=== PATIENT | female | born 2000 | race Caucasian/White ===

== ENCOUNTER 2018-10-05 20:21 | Inpatient (IN) ==
[2018-10-05 20:44] LABS: Basophils % 0.6 % (0.1-2.0); Eosinophils % 0.5 % (0.1-12.0); Hemoglobin 12.8 g/dL (12.2-16.2); Lymphocytes # 1.5 K/mm3 (0.7-4.5); Lymphocytes % 19.8 % (10-50); Mean Corpuscular HGB Conc 32.9 g/dL (31.8-35.4); Mean Corpuscular Volume 86.2 fl (81-99); Mean Platelet Volume 6.9 fl (7.4-10.4); Monocytes # 0.5 K/mm3 (0.1-1.0); Monocytes % 6.3 % (1.7-9.3); Neutrophils # 5.4 K/mm3 (1.8-7.8); Neutrophils % 72.8 % (37.0-80.0); Platelet Count 265 K/mm3 (142-424); Red Blood Count 4.52 M/mm3 (4.20-5.40); Red Cell Distribution Width 13.3 % (11.5-17.5); White Blood Count 7.4 K/mm3 (4.5-13.0)
[2018-10-05 21:04] LABS: Albumin Level 3.6 gm/dL (3.4-5.0); Albumin/Globulin Ratio 1.2 (1.1-1.8); Anion Gap 13.6 mEq/L (5-15); Bilirubin,Total 0.4 mg/dL (0.2-1.0); Calcium 8.6 mg/dL (8.5-10.1); Globulin 2.9 gm/dl (1.3-3.2); Total Protein,Serum 6.5 gm/dL (6.4-8.2)
--- NOTE | 2018-10-05 21:33 | Emergency Department Note ---
ED Disposition Clinical Impression: Fracture of lower leg, closed Qualifiers: Encounter type: initial encounter Laterality: left Qualified Code(s): S82.92XA - Unspecified fracture of left lower leg, initial encounter for closed fracture Disposition: Admitted as Observation Condition on Discharge: Good - Critical Care Critical Care Time: No Attestation: On 10/05/18, the high probability of a clinically significant, sudden or life threatening deterioration of the following system(s) required my full and direct attention, intervention and personal management. The time I documented below is in addition to time spent performing reported procedures but includes the following listed in this critical care notation. Medical Decision Making - Medical Records Medical records reviewed: Yes: I reviewed the patient's medical records. - Parish Inquiry Pt receiving controlled substance: No Vital Signs: 10/05/18 20:20 Temperature 99.3 F Temperature Source Oral Pulse Rate [Left Radial] 73 Respiratory Rate 18 Blood Pressure [Right Arm] 132/71 Blood Pressure Mean [Right Arm] 91 Blood Pressure Source [Right Arm] Manual Cuff/ Doppler Blood Pressure Position [Right Arm] Supine 02 Sat by Pulse Oximetry 97 Oxygen Delivery Method Room Air - Lab Data Lab results reviewed: Yes: I reviewed the patient's lab results. Lab Results 10/05/18 20:03: Serum HCG, Qual Negative 10/05/18 20:30: WBC 7.4, RBC 4.52, Hgb 12.8, Hct 39.0, MCV 86.2, MCH 28.3, MCHC 32.9, RDW 13.3, Plt Count 265, MPV 6.9 L, Neut % (Auto) 72.8, Lymph % (Auto) 19.8, [place] % (Auto) 6.3, Eos % (Auto) 0.5, Baso % (Auto) 0.6, Neut # (Auto) 5.4, Lymph # (Auto) 1.5, [place] # (Auto) 0.5, Eos # (Auto) 0.0, Baso # (Auto) 0.0 10/05/18 20:30: Sodium 142, Potassium 3.6, Chloride 106, Carbon Dioxide 26, Anion Gap 13.6, BUN 17, Creatinine 0.65, Estimated Creat Clear 99, Estimated GFR 116, Est GFR ( Amer) 141, Glucose 114 H, Calcium 8.6, Total Bilirubin 0.4, AST 16, ALT 20, Alkaline Phosphatase 81, Total Protein 6.5, Albumin 3.6, Globulin 2.9, Albumin/Globulin Ratio 1.2 Result diagrams: 10/05/18 20:30 10/05/18 20:30 Orders (Tests/Meds): ED MEDICATIONS Discontinued Medications Generic Name Dose Route Start Last Admin Trade Name Chonq PRN Reason Stop Dose Admin Fentanyl Citrate 100 mcg 10/05/18 20:34 10/05/18 20:38 Fentanyl 100mcg/2ml Vial IV 10/05/18 20:35 100 mcg ONCE ONE Administration Fentanyl Citrate 100 mcg 10/05/18 20:52 10/05/18 21:02 Fentanyl 100mcg/2ml Vial IV 10/05/18 20:53 100 mcg ONCE ONE Administration ORDERS Category Date Time Status CT cervical spine wo con Stat Cat Scan 10/05/18 20:[address] head/brain wo con Stat Cat Scan 10/05/18 20:24 Taken XR chest AP Stat Exams 10/05/18 20:24 Taken XR pelvis 1-2V Stat Exams 10/05/18 20:24 Taken XR tibia fibula LT 2V Stat Exams 10/05/18 20:24 Taken - Radiology Data #1 Image(s): Chest, Pelvis, Tib/Fib Image Reviewed: Yes I reviewed the patient's radiology image Preliminary Findings: Abnormal (lower leg fx ) - CT Data CT Scan: Head, C-Spine Time Received: 21:[address] Reviewed: Yes: I have viewed the radiologist's interpretation Preliminary Findings: No Fracture Seen - Physician Consults Physician Consulted: [email or web address] Reason -: Admission Trauma Alert The Trauma Alert Section documentation for [id number] Kerwin Banuelos was populated with data that defaulted in from the hr business partner in the Trauma Alert Triage Assessment on f_Reg Service Date] to provide within this report, the status of the patient on arrival to the ED during the Trauma Alert. - Arrival Mode of Arrival: EMS Description of Symptoms (Recalled from ER Triage Doc. by RN): pt fell of a horse about 1830 and got her left leg caught in the stirrup. pt c/o of left leg pain. left tib/fib deformity noted. -loc, - c/o neck or back pain at this time. - Pre-Hospital Care Pre-Hospital Care Given: Yes - Pre-Hospital Care History Oxygen in Use: No - Height/Weight/BMI Height: 5 ft Weight: 100 lb Weight Measurement Method: Stated by Patient Body Mass Index: 19.5 - Immunization Status Hx Immunizations Up to Date: Yes Trauma HPI - General Chief Complaint: Trauma Stated Complaint: trauma Time Seen by Provider: 10/05/18 20:30 Mode of Arrival: EMS Source of Information: Patient, Relative, EMS, Medical Record Limitations: Physical Limitations Description of Symptoms (Recalled from ER Triage Doc. by RN): pt fell of a horse about 1830 and got her left leg caught in the stirrup. pt c/o of left leg pain. left tib/fib deformity noted. -loc, - c/o neck or back pain at this time. - History of Present Illness HPI narrative: pt fell off horse with injury to lt lower leg - no loc and denied abd pain or chest pain MD complaint: fall Onset (ago): hour(s) Loss of Consciousness: no Location - Extremities: Left: lower leg Severity: moderate Severity scale (1-10): 8 Context: fall Associated symptoms: denies other symptoms Treatments prior to arrival: cold therapy, splint(s) - Related Data Allergies Allergy/AdvReac Type Severity Reaction Status Date / Time No Known Allergies Allergy Verified 10/05/18 20:23 [facility] History - Hepatitis A Screen Drug use history?: No High risk sexual behaviors?: No History of sexually transmitted infection?: No Currently employed?: No Childcare worker?: No Do you have indoor plumbing?: Yes Do you have electricity?: Yes Attestation statement:: This patient has been screened for Hepatitis A risk factors. I have reviewed the patient's past medical history: Yes ROS Obtained: Yes All systems reviewed & no additional complaints - Constitutional Constitutional: Denies fever(s) - Eyes Eyes: Denies change in vision - ENT Ears, Nose, Mouth, and Throat: Denies sore throat - Cardiovascular Cardiovascular: Denies chest pain - Respiratory Respiratory: No cough - Gastrointestinal Gastrointestingal: Denies: vomiting - Genitourinary Female Genitourinary: Denies hematuria - Musculoskeletal Musculoskeletal: Reports as per HPI, Reports deformity, Denies joint swelling - Integumentary/Breasts Skin/Breast: Denies rash - Neurologic Neurologic: Denies seizure-like activity Physical Exam - General General appearance: alert - Head Head exam: normocephalic - Eye Eye exam: Present: PERRL, EOMI - ENT ENT exam: Present: mucous membranes dry, other (no evid of tongue biting ) - Neck Neck exam: Present: trachea midline - Respiratory Respiratory exam: Present: normal lung sounds bilaterally. Absent: respiratory distress - Cardiovascular Cardiovascular exam: Present: regular rate. Absent: systolic murmur - Abdominal Exam Abdominal exam: Present: soft - Expanded Lower Extremity Exam Left Lower leg exam: Present: tenderness, swelling, deformity, other (neurovascular ok and no clinical evid of compartment syyndrome ) - Neurological Exam Neurological exam: Present: alert, oriented X3, CN II-XII intact, other (gcs=15) - Psychiatric Psychiatric exam: Present: normal affect - Skin Skin exam: Absent: rash Procedures - Orthopedic Splinting/Casting Injury #1 Side: left Lower Extremity Injury Location: lower leg Lower Extremity Immobilizer: posterior splint Post Cast/Splinting Neuro Status: intact Post Cast/Splinting Vasc Status: intact
--- NOTE | 2018-10-06 09:57 | History & Physical Report ---
*Admission Date: 10/05/18 *Chief complaint: Injury left leg *History of present illness: Patient is a 18-year-old female admitted to hospital overnight to the emergency department. She is giving a history of injury to her left leg after she fell off a horse she was riding at about 1830 yesterday evening. She thinks her left leg was caught in the stirrup and she may have broken the leg when she hit the ground. Following the injury she was brought to the [facility] ER where evaluation including x-rays showed a closed, displaced fracture shaft of left tibia and fibula. She was placed in a posterior splint and was admitted for further management. She says she did fairly well overnight and her pain is well controlled with medication. She rates her pain 3-4 out of 10 at baseline. The pain is worse with any attempted movements of the left lower extremity. There is no history of any distal tingling or numbness. She is not complaining of pain anywhere else. No history of any loss of consciousness, head injury, neck or back pain. She is otherwise fit and well and has no significant medical problems. Patient says she is from [place] and is here in [place] with her boss. She is a non-smoker. [place] History I have reviewed the patient's past medical history: Yes Medical History: Denies:: Cancer, Diabetes Mellitus Type 1, Diabetes Mellitus Type 2, MRSA *Have you ever received a pneumonia vaccine?: No *Have you received a flu vaccine this season?: No Other Surgeries: Yes: No Previous Surgery Amputation: No Fractures: No - *Social History Educational Level: Completed College Smoking Status: Never smoker Alcohol Intake: never *Occupational Status:: student Household Members: friend(s) *Travel in the last 8 weeks: None - Psychiatric History Expresses thoughts of harming self/others: None Suicide Plan Description: No Plan Family Hx:: Heart Attack, Hyperlipidemia, Hypertension Review of Systems - Review of Systems Review of systems:: pertinent systems reviewed and negative unless documented below - Constitutional Reports body ache(s) - Eyes Denies blind spots, Denies blurry vision - ENT Denies abnormal hearing - *Cardiovascular Denies chest pain, Denies shortness of breath - *Respiratory Denies cough, Denies shortness of breath - *Gastrointestinal Denies abdominal pain - *Musculoskeletal Reports abnormal walking, Reports deformity, Reports limited joint movement - *Neurologic Denies abnormal speech, Denies dizziness, Denies numbness, Denies tingling/numbness/burning sensations, Denies seizure-like activity Meds Home Medications Medication Instructions Recorded Confirmed Type No Known Home Medications 10/05/18 10/05/18 History Allergies Allergy/AdvReac Type Severity Reaction Status Date / Time No Known Allergies Allergy Verified 10/05/18 20:23 Exam Vital signs and Labs for Last 24 Hours: Temp Pulse Resp BP Pulse Ox 98.9 F 68 20 112/67 100 10/06/18 08:00 10/06/18 08:00 10/06/18 08:00 10/06/18 08:00 10/06/18 08:00 Laboratory Results - last 24 hr 10/05/18 20:03: Serum HCG, Qual Negative 10/05/18 20:30: WBC 7.4, RBC 4.52, Hgb 12.8, Hct 39.0, MCV 86.2, MCH 28.3, MCHC 32.9, RDW 13.3, Plt Count 265, MPV 6.9 L, Neut % (Auto) 72.8, Lymph % (Auto) 19.8, [place] % (Auto) 6.3, Eos % (Auto) 0.5, Baso % (Auto) 0.6, Neut # (Auto) 5.4, Lymph # (Auto) 1.5, [place] # (Auto) 0.5, Eos # (Auto) 0.0, Baso # (Auto) 0.0 10/05/18 20:30: Sodium 142, Potassium 3.6, Chloride 106, Carbon Dioxide 26, Anion Gap 13.6, BUN 17, Creatinine 0.65, Estimated Creat Clear 99, Estimated GFR 116, Est GFR ( Amer) 141, Glucose 114 H, Calcium 8.6, Total Bilirubin 0.4, AST 16, ALT 20, Alkaline Phosphatase 81, Total Protein 6.5, Albumin 3.6, Globulin 2.9, Albumin/Globulin Ratio 1.2 I & O for Last 24 hours: Intake & Output 10/03/18 10/04/18 10/05/18 10/06/18 11:59 11:59 11:59 11:59 Intake Total 0 / 0 Output Total 1150 / 1150 Balance -1150 / -1150 Weight 117 lb 2 oz - Constitutional no acute distress, average body habitus, cooperative - *Routine HEENT Exam Head: Present: normocephalic, atraumatic Eye: Present: EOMI ENT: Present: mucous membranes moist - *Routine Neck Exam Present: supple, full ROM, trachea midline. Absent: lymphadenopathy - *Routine Respiratory Exam Present: CTA bilaterally. Absent: respiratory distress - *Routine Cardiovascular Exam Present: RRR, Normal S1, Normal S2 - *Routine Abdominal Exam Present: soft, normoactive bowel sounds. Absent: organomegaly - *Routine Extremities Exam Comments: On examination of her left lower extremity, she is in a long-leg posterior splint. On examination out of the splint, the skin is intact. There is ecchymosis, swelling and deformity over the middle and distal third junction of the left leg. She is tender over the left leg, tibia/fibula; nontender over the knee and ankle joints. Thigh and calf compartments are soft and nontender; no stretch pain noted with flexion and extension of the toes; no other signs of compartment syndrome noted. Examination of the knee joint is unremarkable. Dorsalis pedis and posterior tibial pulses are 2+. Sensation is intact to light touch throughout. No motor deficits are noted. Diagnostic imaging: X-rays of her left leg performed at [facility] reviewed along with the radiologist report. FINDINGS: Complete transverse fractures are present involving the junction of the mid- distal third of the tibia and fibula with mild anterior displacement of the fracture fragments. There is mild lateral displacement of the fibular fracture fragment. There is some minimal overlap of the fibular fracture fragment. IMPRESSION: Mildly displaced left tib-fib fracture Dictated By: Cole Alva MD 10/06/18 0548 I have also reviewed her trauma series imaging along with radiologist report; no evidence of any other acute injuries are noted. - Routine Back/Spine/Pelvis Exam Back/Spine: Present: full ROM. Absent: CVA tenderness, paraspinal tenderness, vertebral tenderness Pelvis: Absent: tenderness of the symphysis pubis, pain with lateral compression of the pelvis, sacral tenderness - *Routine Skin Exam Present: intact, warm, normal turgor - *Routine Neurological Exam Present: alert, oriented X3, CN II-XII intact - Routine Psychiatric Exam Present: normal affect, normal thought process, cooperative Assessment and Plan (1) Fracture of shaft of left tibia and fibula Current visit: Yes Status: Acute Qualifiers: Encounter type: initial encounter Fracture type: closed Qualified Code(s): S82.202A - Unspecified fracture of shaft of left tibia, initial encounter for closed fracture; S82.402A - Unspecified fracture of shaft of left fibula, initial encounter for closed fracture Category: Medical Code(s): S82.202A - Unspecified fracture of shaft of left tibia, initial encounter for closed fracture; S82.402A - Unspecified fracture of shaft of left fibula, initial encounter for closed fracture - Assessment and plan all Dx Assessment and Plan for all problems:: I have reviewed the clinical and x-ray findings with the patient. I have discussed the diagnosis, natural history and management options in detail including both nonsurgical and surgical. We have reapplied a well-padded long leg splint for temporary immobilization and comfort. Given the fracture pattern, displacement and shortening, I have recommended a closed/open reduction and internal fixation of the tibial shaft fracture. The fibula fracture usually heals by itself and does not need surgical fixation. I have discussed details of the closed/open reduction and intramedullary nailing for tibial shaft fracture. Following a detailed discussion she wished to proceed with surgery. I have discussed the details of the proposed surgical procedure, risks and benefits and alternatives. We have outlined where the incisions will be on the skin. Risks of surgery discussed include but are not limited to- infection, bleeding injury to nerves and blood vessels, compartment syndrome, fat embolism, intra-articular knee injury, incisional scar (cosmesis), DVT/PE, malunion, nonunion/delayed union, refracture, knee/ankle stiffness and pain, CRPS (complex regional pain syndrome- pain, sensory and temperature changes, swelling and stiffness), painful/prominent hardware, loss of fixation/hardware failure, incomplete relief of pain, incomplete return of function, and likely need for further surgery in future and also the risks of anesthesia including heart attack, stroke, and even . We've discussed how there is a small but real possibility of loss of use of the leg, loss of the limb (amputation) or loss of life itself. We've also explained how additional surgery may be required if there are any complications or the fracture fails to heal. We explained the postoperative pain management, recovery and rehabilitation, immobilization required, the likely need for physical therapy, the possibility of stiffness, chronic pain and we've also discussed the option of nonsurgical treatment. The patient expressed a good understanding and has asked appropriate questions. All her questions were answered and she verbalized a good understanding. She desires to proceed with the closed/open reduction internal fixation of her LEFT tibial shaft fracture. I have ordered the appropriate preoperative workup. I have advised her to continue with the splint, elevate the leg, mobilize the toes and ice the fracture site frequently to try and reduce the pain and swelling. After necessary preoperative work-up, we are planning to take her for surgery this afternoon at [facility].
--- NOTE | 2018-10-06 17:01 | Progress Note ---
[facility] Anesthesia Record Part I Intake, IV Amount: 2,300 Estimated blood loss (mL): 100 Urine output (mL): 700 Blood Pressure: 135/51 SaO2: 95 Pulse Rate: 101 Respiratory Rate: 16 Temperature: 99.1 F Patient is:: Drowsy, Stable Stable to PACU at:: 16:55
--- NOTE | 2018-10-06 17:01 | Progress Note ---
[facility] Anesthesia Checklist - Structural Data Admitted From: Inpatient Planned Operative Procedure/s: orif/nailing left tibia Consent for Planned Operative Procedure(s) Verified: Yes Verified Documents: Surgical Consent, History and Physical - NPO Status Verified Time NPO: 00:00 - Additional verifications Anesthesia Reactions: No - Airway Assessment C-Spine Mobility Assessed: Yes (mp2) TMJ Mobility Assessed: Yes Dentition: Good Dentition - Neurological Assessment Level of Consciousness: Awake, Alert - Anesthesia Plan Anesthesia Risk discussed: Yes Anesthesia Plan: Verified ASA Class: I Anesthesia Type: General [facility] History I have reviewed the patient's past medical history: Yes Medical History: Denies:: Cancer, Diabetes Mellitus Type 1, Diabetes Mellitus Type 2, MRSA *Have you ever received a pneumonia vaccine?: No *Have you received a flu vaccine this season?: No Amputation: No Fractures: No - *Social History Educational Level: Completed College Alcohol Intake: never Substance Use Type: denies use *Occupational Status:: student Household Members: friend(s) *Travel in the last 8 weeks: None - Psychiatric History Expresses thoughts of harming self/others: None Suicide Plan Description: No Plan Family Hx:: Heart Attack, Hyperlipidemia, Hypertension
--- NOTE | 2018-10-06 17:02 | Progress Note ---
[facility] Anesthesia Record Part II Discharge Time: 17:25 Destination: 2nd floor PACU nurse assessment reviewed?: Yes Patient Condition:: Good Anesthesia Complications:: None Swallowing reflex intact?: Yes Cyanosis?: No
--- NOTE | 2018-10-06 17:29 | Operative Note ---
Date of procedure: 10/06/18 Pre-op Diagnosis:: 1. Closed, displaced fracture shaft of tibia, left 2. Closed, displaced fracture shaft of fibula, left Post-op Diagnosis:: Same Procedure performed:: Closed reduction and IM nailing tibia, left Surgeon:: Dilip Rascon MD OYSTER SHIPPER:: Jovany Lennon Anesthesia: GETA Estimated blood loss (mL): 100 Clinical Note:: Patient is a 18-year-old female who fell off a horse and sustained a closed, displaced and unstable fracture shafts of left tibia and fibula. The patient was evaluated in the ER following which she was admitted and splinted and had compartment checks. Patient is otherwise fit and healthy without any medical problems. She does not have any significant medical problems. She is a non- smoker. Following a detailed discussion regarding the management options including both nonsurgical and surgical, patient opted for the surgical remediation. I have discussed details of the procedure, risks and benefits and alternatives in detail. The complications of surgery discussed include but are not limited to- infection, bleeding, injury to nerves, blood vessels and tendons, compartment syndrome, intra-articular knee injury, incisional scar (cosmesis), DVT/PE, malunion, nonunion/delayed union, refracture, knee/ankle stiffness and pain, posttraumatic arthritis, CRPS (complex regional pain syndrome- pain, sensory and temperature changes, swelling and stiffness), painful/prominent hardware, loss of fixation/hardware failure, incomplete relief of pain, incomplete return of function, and likely need for further surgery in future and also the risks of anesthesia including heart attack, stroke, and even . We've discussed how there is a small but real possibility of loss of use of the leg, loss of the limb (amputation) or loss of life itself. We've also explained how additional surgery may be required if there are any complications or the fracture fails to heal. We explained the postoperative pain management, recovery and rehabilitation, immobilization required, the likely need for physical therapy, the possibility of stiffness, chronic pain and we've also discussed the option of nonsurgical treatment. The patient expressed good understanding and wished to proceed. An intramedullary nailing is indicated to reduce and stabilize the unstable tibial fracture thereby relieving the pain and improving function. Patient understood the risks, agreed to proceed with surgery, signed the consent form and no guarantees or assurances were given or implied. Please refer to my H&P for full details. Operative findings:: A displaced, unstable fracture of the shaft of the left tibia at middle and lower third junction. Also noted minimally displaced fracture of the shaft of the fibula. The tibial shaft fracture is reduced satisfactorily by closed manipulation. Moderate soft tissue swelling is noted. The tibial medullary canal is noted to be somewhat narrow; the bone quality is good. Operative note:: Prior to the surgery the patient was met in the preoperative holding area and positively identified. A physical examination was performed and documented. The operative site was marked and initialed by me. The consent form was reviewed and signed. The patient was brought to the operating room and placed supine on the operating table. All the bony prominences were appropriately padded. A general anesthesia was administered by the chainstitch seat joiner. A tourniquet cuff was placed over the left upper thigh. However, the tourniquet was not inflated during the procedure. We made sure there is a good access for AP and lateral fluoroscopic imaging. The left leg was then prepped and draped in the usual sterile fashion. A preprocedure timeout was performed as per hospital protocol. Administration of prophylactic antibiotics was confirmed with the chainstitch seat joiner. We used the positioning triangle to support the leg with the knee in a flexed position. An infrapatellar approach was used for the tibial nailing. A midline skin incision was made from the distal pole of the patella to the tibial tubercle. The incision was carried down sharply to the patellar tendon. The tendon was then split in line with the skin incision exposing the nonarticular part of the proximal anterior tibia. This gave us a very good access to the insertion site for the tibial nail. Under both AP and lateral fluoroscopic guidance, a 3 mm K- wire was placed into the proximal tibia. The opening drill was placed through the tissue protector over the guidewire and advanced into the proximal tibia to an appropriate length under fluoroscopic guidance. We then exchanged the guidewire for a longer ball tipped guidewire. The guidewire was placed into the medullary canal and advanced across the fracture site after reducing the fracture and positioned centrally in the distal tibia. The nail length was then measured using the guidewire ruler. After passing the guidewire and confirming appropriate reduction on both AP and lateral fluoroscopic images, the flexible reamers were then sequentially passed, starting at 8.5 mm. Reaming was p erformed sequentially up to 10 mm reamer. At this point, the tissue protector/drill sleeve was removed, leaving the ball-tipped guidewire in place. A 9 x 300 mm nail was selected, mounted to the assembly and passed over the guidewire without difficulty. The ball-tipped guidewire was then removed. After seating the nail to the appropriate level we proceeded with the interlocking screw fixation. The distal locking screws were inserted first using the appropriate distal locking jig. We used 2 mediolateral screws. Then we made sure there is no rotational malalignment and the nail was backed out to get good compression at the fracture site. The appropriate proximal locking guide was used for the proximal locking screws and 2 medio-lateral transverse proximal locking screws were inserted through the dynamic and static holes. The final images were taken with fluoroscopy and stored digitally. The surgical incisions were then irrigated with copious normal saline. Hemostasis secured with the diathermy cautery. The patellar tendon was closed with 2 0 Vicryl interrupted [id number] sutures and the paratenon closed with 2-0 Vicryl sutures. Subcutaneous tissue closed with 2-0 Vicryl interrupted sutures. The skin was closed with subcuticular 4-0 Monocryl sutures, Dermabond and Steri- Strips. The distal and proximal screw incisions were irrigated with normal saline and closed with 4-0 Monocryl sutures, Dermabond and Steri-Strips. Sterile dressings were applied. The patient was then transferred onto the bed. She was then transported to the postoperative recovery area in a stable condi tion. Patient tolerated the procedure well and there were no immediate complications. Swab, needle and instrument counts were correct at the end of the procedure as per the scrub team. A postoperative check x-ray was obtained in the recovery room and was noted to be satisfactory. Patient will receive 3 more doses of prophylactic antibiotics. Recommend close monitoring postoperatively and observations for development of compartment syndrome. Keep the leg elevated, ice the operative site and encourage active ankle, foot and toe movements. She will be allowed to mobilize weightbearing as tolerated. Implants: [place] T2 Alpha tibial system tibial nail (9 mm x 300 mm) 2 proximal and 2 distal interlocking screws- proximal: 5 x 30 mm & 5 x 30mm; distal: 5 x 35 mm & 5 x 30 mm Industry support representative: Oumar Berry from [employer]. Condition: stable Disposition: PACU Specimens:: None Complications:: None
[2018-10-07 07:29] LABS: Basophils % 0.2 % (0.1-2.0); Eosinophils % 0.4 % (0.1-12.0); Hematocrit 31.3 % (37.0-47.0); Hemoglobin 10.6 g/dL (12.2-16.2); Lymphocytes # 1.3 K/mm3 (0.7-4.5); Lymphocytes % 15.7 % (10-50); Mean Corpuscular HGB Conc 33.9 g/dL (31.8-35.4); Mean Corpuscular Volume 85.3 fl (81-99); Mean Platelet Volume 7.2 fl (7.4-10.4); Monocytes # 0.4 K/mm3 (0.1-1.0); Monocytes % 5.4 % (1.7-9.3); Neutrophils # 6.2 K/mm3 (1.8-7.8); Neutrophils % 78.3 % (37.0-80.0); Platelet Count 208 K/mm3 (142-424); Red Blood Count 3.67 M/mm3 (4.20-5.40); Red Cell Distribution Width 13.2 % (11.5-17.5)
[2018-10-07 07:38] LABS: Anion Gap 7.2 mEq/L (5-15); Calcium 8.3 mg/dL (8.5-10.1)
--- NOTE | 2018-10-07 12:29 | Discharge Summary ---
General - General Admission date:: 10/05/18 Discharge date: 10/07/18 HPI HPI: Patient is a 18-year-old female admitted to hospital overnight to the emergency department. She is giving a history of injury to her left leg after she fell off a horse she was riding at about 1830 yesterday evening. She thinks her left leg was caught in the stirrup and she may have broken the leg when she hit the ground. Following the injury she was brought to the [facility] ER where evaluation including x-rays showed a closed, displaced fracture shaft of left tibia and fibula. She was placed in a posterior splint and was admitted for further management. She says she did fairly well overnight and her pain is well controlled with medication. She rates her pain 3-4 out of 10 at baseline. The pain is worse with any attempted movements of the left lower extremity. There is no history of any distal tingling or numbness. She is not complaining of pain anywhere else. No history of any loss of consciousness, head injury, neck or back pain. She is otherwise fit and well and has no significant medical problems. Patient says she is from [place] and is here in [place] with her boss. She is a non-smoker. Hospital Course Hospital Course: Patient underwent an uncomplicated left tibial nailing on 10/06/2018. Following surgery patient progressed well without any complications. Her postoperative check x-ray was satisfactory with good alignment and fixation of the fracture. She progressed rapidly with physical therapy and was able to mobilize using crutches. Her pain is well controlled with as needed oral pain medication. The dressings were changed on the first postoperative day and the surgical incisions are healthy and healing well. No signs of any erythema, induration or discharge. No signs of any compartment syndrome were noted. Her neurovascular status in the left lower extremity is intact. Pedal pulses 2+ bilaterally and fully sensate distally. No clinical evidence of DVT noted. On the day of discharge, the patient has been stable. Patient's vital signs have been stable throughout and she is afebrile at the time of discharge. She is being discharged home with self-care/family. Condition at discharge: improved and stable. Treatments and Procedures: Closed tibial nailing, left; date of surgery 10/06/2018. Objective Vital signs: Temp Pulse Resp BP Pulse Ox 98.2 F 62 17 104/40 L 99 10/07/18 08:00 10/07/18 08:00 10/07/18 08:00 10/07/18 08:00 10/07/18 08:00 no acute distress, thin - *Routine HEENT Exam Head: Present: normocephalic, atraumatic Eye: Present: EOMI ENT: Present: mucous membranes moist - *Routine Neck Exam Present: supple, full ROM, trachea midline - *Routine Respiratory Exam Present: CTA bilaterally - *Routine Cardiovascular Exam Present: RRR, Normal S1, Normal S2 - *Routine Abdominal Exam Present: soft, normoactive bowel sounds. Absent: tenderness - *Routine Extremities Exam Comments: On examination of the left lower extremity, the dressings are clean, dry and intact. I have changed the dressings and the incisions look dry and healthy. There is minimal dried blood on the dressings at the distal locking screw site. There is no erythema or discharge. There is mild diffuse swelling and some tenderness over the fracture site/leg as to be expected at this stage. She has good range of knee, ankle, foot and toe movements. Distal pulses are 2+. Capillary refill is brisk. Sensation is intact to light touch throughout. Thigh and calf are soft and there is mild tenderness over the calf. - Routine Back/Spine/Pelvis Exam Back/Spine: Present: full ROM. Absent: vertebral tenderness Pelvis: Absent: pain with lateral compression of the pelvis - *Routine Skin Exam Present: intact, warm, normal turgor - *Routine Neurological Exam Present: alert, oriented X3, moving all extremities, normal tone - Routine Psychiatric Exam Present: normal affect, cooperative Results Labs on day of discharge: Labs from last 24 hours 10/07/18 10/07/18 10/06/18 06:38 06:38 12:52 WBC 8.0 RBC 3.67 L Hgb 10.6 L Hct 31.3 L MCV 85.3 MCH 28.9 MCHC 33.9 RDW 13.2 Plt Count 208 MPV 7.2 L Neut % (Auto) 78.3 Lymph % (Auto) 15.7 [place] % (Auto) 5.4 Eos % (Auto) 0.4 Baso % (Auto) 0.2 Neut # (Auto) 6.2 Lymph # (Auto) 1.3 [place] # (Auto) 0.4 Eos # (Auto) 0.0 Baso # (Auto) 0.0 Sodium 138 Potassium 4.2 Chloride 106 Carbon Dioxide 29 Anion Gap 7.2 BUN 6 L D Creatinine 0.63 Estimated Creat Clear 115 Estimated GFR 120 Est GFR ( Amer) 146 Glucose 85 Calcium 8.3 L Urine Color Straw Urine Appearance Clear Urine pH 7.0 Ur Specific [place] 1.010 Urine Protein Negative Urine Glucose (UA) Negative Urine Ketones Negative Urine Blood Negative Urine Nitrate Negative Urine Bilirubin Negative Urine Urobilinogen 0.2 Ur Leukocyte Esterase Negative Urine RBC None Urine WBC Occasional Ur Squamous Epith Cells None Urine Bacteria Trace Urine HCG, Qual 10/06/18 12:52 WBC RBC Hgb Hct MCV MCH MCHC RDW Plt Count MPV Neut % (Auto) Lymph % (Auto) [place] % (Auto) Eos % (Auto) Baso % (Auto) Neut # (Auto) Lymph # (Auto) [place] # (Auto) Eos # (Auto) Baso # (Auto) Sodium Potassium Chloride Carbon Dioxide Anion Gap BUN Creatinine Estimated Creat Clear Estimated GFR Est GFR ( Amer) Glucose Calcium Urine Color Urine Appearance Urine pH Ur Specific [place] Urine Protein Urine Glucose (UA) Urine Ketones Urine Blood Urine Nitrate Urine Bilirubin Urine Urobilinogen Ur Leukocyte Esterase Urine RBC Urine WBC Ur Squamous Epith Cells Urine Bacteria Urine HCG, Qual Negative DS: Diagnosis - Discharge Diagnosis (1) Fracture of shaft of left tibia and fibula Start date: 10/05/18 Status: Acute Discharge Plan - Patient Discharge Instructions ACTIVITY: Ambulate as tolerated DIET: advance to your usual diet Patient Instructions: Fracture, DI for Fracture - Follow up Plan Follow up with: Dilip Rascon MD [Staff Physician] - 10/12/18 11:00 am ProviderEduar MD [Primary Care Provider] - Disposition: Home, Self-[facility] Medications: Home Medications Medication Instructions Recorded Confirmed Type Hydrocod/Acet 5/325 mg [[place] 1 - 2 tab PO Q4HP PRN #60 tab 10/07/18 Rx 5/325mg tablet] Prescriptions/Medication Reconciliation: New Hydrocod/Acet 5/325 mg [[place] 5/325mg tablet] 1 - 2 tab PO Q4HP PRN #60 tab PRN Reason: Moderate To Severe Pain - Problem Reconciliation Problems Reviewed?: Yes - Additional Information Additional Information: Our recommendations on discharge include mobilization weightbearing as tolerated on the left side and active range of motion exercises of the left knee, ankle and foot as comfortable. She can use crutches or other walking aids as appropriate if needed. Also encouraged her to continue elevation, regular icing and take as needed pain medication. After a few days it is permissible to take a shower and allow the incisions to get wet with shower water. After padding the area dry, the wounds can be left open. Patient will follow up with me in the office in about 1 week for wound check.Please feel free to call our office at [phone] or via the hospital electronic page makeup system operator [phone] for any orthopaedic questions or concerns.
--- NOTE | 2018-10-07 13:28 | Pharmacy Consult Notes ---
[facility] Pharmacy VTE Monitoring - Patient Demographics Admission date: 10/05/18 Report Date: 10/07/18 Time: 13:28 Allergies/Adverse Reactions: Patient Allergies No Known Allergies Allergy (Verified 10/05/18 20:23) Height: 1.52 m Weight: 51.057 kg Patient Problems: Current Active Problems Fracture of lower leg, closed (Acute) Fracture of shaft of left tibia and fibula (Acute) - VTE Risk Labs: VTE Related Lab Results Hgb 10.6 g/dL (12.2-16.2) L 10/07/18 06:38 Hct 31.3 % (37.0-47.0) L 10/07/18 06:38 Plt Count 208 K/mm3 (142-424) 10/07/18 06:38 BUN 6 mg/dL (7-18) L D 10/07/18 06:38 Creatinine 0.63 mg/dL (0.55-1.02) 10/07/18 06:38 Estimated Creat Clear 115 mL/min (50-200) 10/07/18 06:38 Was VTE Risk Assessment Performed: No VTE Score: 0 - Prophylaxis VTE Prophylaxis Ordered?: Yes Types of VTE Prophylaxis: IPCS Thigh High Location of Applied Device: Right Leg
== END 2018-10-07 13:10 | disposition home or self-care (01) | DRG 494 ==
LOC: 2ND 20:21 → ER 20:21 → OBSVTOIN 22:51 → 2ND 22:52
PROVIDERS: ADMIT Orthopaedic Surgery; ATTEND Orthopaedic Surgery
CPT/HCPCS: 36415; 70450; 71010; 71045; 72125; 72170; 73590; 76000; 80048; 80053; 81001; 81025; 84703; 85025; 96374; 96376; 97162; 99284; C1713; C1776; J2405

== ENCOUNTER → 2018-10-12 10:26 | Outpatient (CLI) | payer OTHER, SELFPAY ==
--- NOTE | 2018-10-12 10:31 | XR_ITS ---
PROCEDURE: XR TIBIA FIBULA LT 2V CLINICAL INDICATION: 1 week sp LT tibia nailing follow-up surgery/ORIF COMPARISON: from 10/06/2018 FINDINGS: No change in the intramedullary ysabel within the tibia stabilizing the distal tibial fracture. There is some early callus formation noted. Dense material is present medial to the fracture line may be due to antibiotic beads. This density however somewhat more prominent than when compared to the previous exam possibly due to heterotopic bone formation IMPRESSION: Good alignment status post ORIF tib-fib fracture with developing callus formation and some increase in density along the medial aspect of the fracture site possibly related to developing heterotopic ossification Dictated by: Cole Alva MD 10/13/2018 05:58 Signed by: <Electronically signed by Cole Alva MD in [place]> 10/13/2018 05:58
== END ==
PROVIDERS: Visit Provider Orthopaedic Surgery
DX: Z48.89 Encounter for other specified surgical aftercare (principal); S82.202A Unspecified fracture of shaft of left tibia, initial encounter for closed fracture; S82.402A Unspecified fracture of shaft of left fibula, initial encounter for closed fracture
CPT/HCPCS: 73590

== ENCOUNTER → 2018-11-17 15:12 | Outpatient (CLI) | payer OTHER, SELFPAY ==
--- NOTE | 2018-11-17 15:18 | XR_ITS ---
PROCEDURE: XR TIBIA FIBULA LT 2V CLINICAL INDICATION: sp closed reduction IM nailing left tibia Follow-up fracture COMPARISON: XR TIBIA FIBULA LT 2V from 10/12/2018 FINDINGS: Intramedullary ysabel is present within the left tibia stabilizing nondisplaced fracture of the junction of the mid and distal 3rd of the tibia. There is good alignment. There is some early callus formation noted. Fracture is present at the fibula at the same level showing some healing with early callus formation with good alignment. On the lateral view there is minimal anterior displacement of the distal fracture fragment regarding the tibia. IMPRESSION: Healing fracture junction mid and distal 3rd of the tibia and fibula Dictated by: Cole Alva MD 11/17/2018 15:46 Electronically signed by Cole Alva MD in [place] 11/17/2018 15:46
== END ==
PROVIDERS: Visit Provider Orthopaedic Surgery
DX: S82.202A Unspecified fracture of shaft of left tibia, initial encounter for closed fracture (principal); S82.402A Unspecified fracture of shaft of left fibula, initial encounter for closed fracture; Z48.89 Encounter for other specified surgical aftercare
CPT/HCPCS: 73590

== ENCOUNTER → 2018-12-29 14:11 | Outpatient (CLI) | payer OTHER, SELFPAY ==
--- NOTE | 2018-12-29 14:16 | XR_ITS ---
PROCEDURE: XR TIBIA FIBULA LT 2V CLINICAL INDICATION: sp closed reduction IM nailing, left tibia Follow-up fracture/ORIF COMPARISON: XR TIBIA FIBULA LT 2V from 10/12/2018 XR TIBIA FIBULA LT 2V from 11/17/2018 FINDINGS: Status post intramedullary ysabel placement stabilizing fracture at the junction of the mid distal 3rd of the tibia with good alignment. Callus formation is noted. Healing fracture of the fibula at the same area also noted with callus formation. IMPRESSION: Healing tib fib fracture status post ORIF with good alignment Dictated by: Cole Alva MD 12/29/2018 16:31 Electronically signed by Cole Alva MD in [place] 12/29/2018 16:31
== END ==
PROVIDERS: Visit Provider Orthopaedic Surgery
DX: S82.202A Unspecified fracture of shaft of left tibia, initial encounter for closed fracture (principal); S82.402A Unspecified fracture of shaft of left fibula, initial encounter for closed fracture; Z48.89 Encounter for other specified surgical aftercare
CPT/HCPCS: 73590